=== PATIENT | male | born 1990 | race Caucasian/White ===

== ENCOUNTER 2016-12-28 18:38 | Emergency (ER) | payer OTHER ==
[2016-12-28 18:57] VITALS: TEMP 98.3; BMI 28.0
--- NOTE | 2016-12-28 19:16 | PDOC ---
[id number] NAUSEA/VOMITING Time Seen by Provider: 12/28/16 19:16 History Source: Patient - History of Present Illness Initial Comments: 12/28/16 19:41 26 year old male with RLQ pain , NV since this afternoon. pain worsening overtime. patient reports difficulty with urination and bowel movements. denies flank pain, fever, chest pain Past History - Travel Traveled outside of the country in the last 30 days: Yes Close contact w/someone who was outside of country & ill: No - Past Medical History Allergies/Adverse Reactions: Allergies Allergy/AdvReac Type Severity Reaction Status Date / Time No Known Allergies Allergy Verified 12/28/16 18:57 Home Medications: Ambulatory Orders Ibuprofen 600 mg PO QID #30 tablet 12/29/16 Oxycodone HCl/Acetaminophen [Percocet 5-325 mg Tablet] 1 tab PO Q6H #10 tablet MDD 4 12/29/16 Tamsulosin HCl [Flomax] 0.4 mg PO DAILY #7 capsule 12/29/16 Other medical history: PT DENIES MEDICAL HX - Immunization History Immunization Up to Date: Yes - Psycho/Social/Smoking Cessation Hx Suicidal Ideation: No Smoking History: Never smoked Have you smoked in the past 12 months: Yes Information on smoking cessation initiated: No Hx Alcohol Use: No Drug/Substance Use Hx: Yes Substance Use Type: Marijuana Review of Systems - Review of Systems Able to Perform ROS?: Yes Is the patient limited [place]ian proficient: No Constitutional: No: Symptoms Reported, See HPI, Chills, Diaphoresis, Fever, Loss of Appetite, Malaise, Night Sweats, Weakness, Weight Stable, Unintentional Wgt. Loss, Unexplained wgt Loss, Other HEENTM: No: Symptoms Reported, See HPI, Eye Pain, Blurred Vision, Tearing, Recent change in vision, Double Vision, Cataracts, Ear Pain, Ocular Prothesis, Ear Discharge, Nose Pain, Nose Congestion, Tinnitus, Nose Bleeding, Hearing Loss , Throat Pain, Throat Swelling, Mouth Pain, Dental Problems, Difficulty Swallowing, Mouth Swelling, Other ABD/GI: Yes: Constipated, Nausea, Vomiting, Abdominal cramping : Yes: Other (urinary retention) Integumentary: No: Symptoms Reported, See HPI, Bruising, Change in Color, Change in Hair/Nails, Dryness, Erythema, Flushing, Lesions, Lumps, Pallor, Pruritus, Rash, Sweating, Other Neurological: No: Symptoms reported, See HPI, Headache, Numbness, Paresthesia, Pre-Existing Deficit, Seizure, Tingling, Tremors, Weakness, Unsteady Gait, Ataxia, Dizziness, Other *Physical Exam - Vital Signs Last Vital Signs Temp Pulse Resp BP Pulse Ox 98.3 F 49 L 22 128/44 100 12/28/16 18:54 12/28/16 18:54 12/28/16 18:54 12/28/16 18:54 12/28/16 18:54 - Physical Exam General Appearance: Yes: Appropriately Dressed Respiratory/Chest: positive: Lungs Clear, Normal Breath Sounds, Respiratory Distress Cardiovascular: positive: Regular Rhythm, Regular Rate Gastrointestinal/Abdominal: positive: Normal Bowel Sounds, Tender (RLQ), Soft, Guarding, Rebound, Tenderness (RLQ), Other (+ mcburneys, + rosvigs) Musculoskeletal: positive: Normal Inspection Extremity: positive: Normal Capillary Refill, Normal Inspection Integumentary: positive: Normal Color, Dry, Warm Neurologic: positive: Fully Oriented, Alert, Normal Mood/Affect ED Treatment Course - LABORATORY CBC & Chemistry Diagram: 12/28/16 20:00 12/28/16 20:25 Medical Decision Making - Medical Decision Making A: renal colic/ kidney stone P: IVF A: cbc CMP IV fluids CTAP: + obstructed 4mm stone right UVJ with mild hydronehprosis flomax pain control urology outpatient follow up *DC/Admit/Observation/Transfer Diagnosis at time of Disposition: Kidney stone on right side Abdominal pain Qualifiers: Abdominal location: right lower quadrant Qualified Code(s): R10.31 - Right lower quadrant pain - Discharge Dispostion Disposition: HOME Condition at time of disposition: Stable - Prescriptions Prescriptions: Tamsulosin HCl [Flomax] 0.4 mg PO DAILY #7 capsule Ibuprofen 600 mg PO QID #30 tablet Oxycodone HCl/Acetaminophen [Percocet 5-325 mg Tablet] 1 tab PO Q6H #10 tablet MDD 4 - Referrals Referrals: Selam Hernandez MD [Primary Care Provider] - Magnus Morris MD., MD [Staff Physician] - - Patient Instructions Printed Discharge Instructions: Kidney Stones -- Adult Additional Instructions: drink plenty of fluids take flomax as prescribed. take ibuprofen for pain level 1-5 take percocet for severe pain follow up with urologist as soon as possible.
[2016-12-28] MEDS ORDERED: SODIUM CHLORIDE 1,000 ML IV STA (19:38)
[2016-12-28] MEDS ORDERED: ONDANSETRON 4 MG/2 ML VIAL IVPB ONE (19:38)
[2016-12-28] MEDS ORDERED: morphine CARPU-JECT 4 MG/1 ML DISP.SYRIN IVPUSH ONE (19:39)
[2016-12-28] MEDS ORDERED: morphine CARPU-JECT 4 MG/1 ML DISP.SYRIN ONE (19:45)
[2016-12-28] MEDS ORDERED: ONDANSETRON 4 MG/2 ML VIAL ONE (19:45)
[2016-12-28 20:08] LABS: BASOPHIL 0.4 % (0-2.0); EOSINOPHIL 0.1 % (0-4.5); MCH 30.1 pg (25.7-33.7); MCHC 33.6 g/dl (32.0-35.9); MEAN CELL VOLUME 89.4 fl (80-96); MEAN PLT VOLUME 9.3 fl (7.5-11.1); NEUTROPHILS 87.4 % (42.8-82.8); PLATELET COUNT 266 K/MM3 (134-434); RDW 13.8 % (11.9-15.9); WHITE BLOOD COUNT 13.6 K/mm3 (4.0-10.0)
--- NOTE | 2016-12-28 20:39 | PDOC ---
*Physical Exam - Vital Signs Last Vital Signs Temp Pulse Resp BP Pulse Ox 98.3 F 49 L 22 128/44 100 12/28/16 18:54 12/28/16 18:54 12/28/16 18:54 12/28/16 18:54 12/28/16 18:54 - Physical Exam Comments: 12/28/16 20:39 The patient was examined by [PAULIE Brooke] under my direct supervision. I personally evaluated the patient. I concur with the above findings and the plan of care. ED Treatment Course - LABORATORY CBC & Chemistry Diagram: 12/28/16 20:00 12/28/16 20:00 - ADDITIONAL ORDERS Additional order review: Laboratory Results 12/28/16 20:00 Sodium Cancelled Potassium Cancelled Chloride Cancelled Carbon Dioxide Cancelled Anion Gap Cancelled BUN Cancelled Creatinine Cancelled Creat Clearance w eGFR Cancelled Random Glucose Cancelled Calcium Cancelled Total Bilirubin Cancelled AST Cancelled ALT Cancelled Alkaline Phosphatase Cancelled Total Protein Cancelled Albumin Cancelled Lipase Cancelled 12/28/16 20:00 RBC 4.77 MCV 89.4 MCHC 33.6 RDW 13.8 MPV 9.3 Neutrophils % 87.4 H Lymphocytes % 9.3 Monocytes % 2.8 L Eosinophils % 0.1 Basophils % 0.4 - Medications Given in the ED: ED Medications Discontinued Medications Generic Name Dose Route Start Last Admin Trade Name Freq PRN Reason Stop Dose Admin Sodium Chloride 1,000 mls @ 1,000 mls/hr 12/28/16 19:38 12/28/16 20:01 Normal Saline - IV 12/28/16 20:37 1,000 mls/hr ASDIR STA Administration Morphine Sulfate 4 mg 12/28/16 19:39 12/28/16 20:01 Morphine Injection - IVPUSH 12/28/16 19:40 4 mg ONCE ONE Administration Ondansetron HCl 4 mg 12/28/16 19:38 12/28/16 20:01 Zofran Injection IVPB 12/28/16 19:39 4 mg ONCE ONE Administration *DC/Admit/Observation/Transfer Diagnosis at time of Disposition: Abdominal pain Qualifiers: Abdominal location: right lower quadrant Qualified Code(s): R10.31 - Right lower quadrant pain
[2016-12-28] MEDS ORDERED: HYDROmorphone HCL CARPU-JECT 1 MG/1 ML DISP.SYRIN IVPB ONE (21:00)
[2016-12-28 21:01] LABS: URINE APPEARANCE CLEAR; URINE BILIRUBIN NEGATIVE (NEGATIVE); URINE COLOR STRAW; URINE GLUCOSE (UA) NEGATIVE (NEGATIVE); URINE KETONE 1+ (NEGATIVE); URINE LEUK ESTERASE NEGATIVE (NEGATIVE); URINE NITRITE NEGATIVE (NEGATIVE); URINE UROBILINOGEN NEGATIVE E.U./dl (0.2-1.0)
[2016-12-28 21:07] LABS: URINE BLOOD 1+ (NEGATIVE); URINE PROTEIN 2+ (NEGATIVE)
[2016-12-28] MEDS ORDERED: HYDROmorphone HCL CARPU-JECT 1 MG/1 ML DISP.SYRIN ONE ×2 (21:07→22:29)
[2016-12-28 21:12] LABS: ALBUMIN 4.2 g/dl (3.4-5.0); ANION GAP 10 (8-16); CALCIUM 8.3 mg/dL (8.5-10.1); CO2 27 mmol/L (21-32); COCKROFT - GAULT 138.85; GLUCOSE,RANDOM 109 mg/dL (74-106); SGOT/AST 33 U/L (15-37); SGPT/ALT 39 U/L (12-78)
[2016-12-28 21:13] LABS: URINE MUCUS RARE; URINE RBC 255 /hpf (0-3); URINE WBC 6 /hpf (3-5)
[2016-12-28 21:14] LABS: ALK PHOS 74 U/L (45-117); BILIRUBIN,TOTAL 0.5 mg/dL (0.2-1.0); TOT PROT 7.5 g/dl (6.4-8.2)
[2016-12-28] MEDS ORDERED: SODIUM CHLORIDE 1,000 ML IV SCH (21:30)
[2016-12-28] MEDS ORDERED: KETOROLAC TROMETHAMINE 30 MG/1 ML VIAL IVPUSH ONE (22:25)
[2016-12-28] MEDS ORDERED: HYDROmorphone HCL CARPU-JECT 1 MG/1 ML DISP.SYRIN IVPUSH ONE (22:26)
[2016-12-29] MEDS ORDERED: TAMSULOSIN HCL 0.4 MG CAP.ER.24H (FP) PO ONE
[2016-12-29] MEDS ORDERED: KETOROLAC TROMETHAMINE 30 MG/1 ML VIAL IVPUSH ONE
[2016-12-29] MEDS ORDERED: TAMSULOSIN HCL 0.4 MG CAP.ER.24H (FP) ONE (00:02)
[2016-12-29] MEDS ORDERED: KETOROLAC TROMETHAMINE 30 MG/1 ML VIAL ONE (00:03)
[2016-12-29 00:41] VITALS: BP 127/92; PULSE 73
[2016-12-29] MEDS ORDERED: OXYCODONE/APAP 5/325MG COMBO TABLET PO ONE (01:21)
[2016-12-29] MEDS ORDERED: OXYCODONE/APAP 5/325MG COMBO TABLET ONE (01:27)
--- NOTE | 2016-12-29 09:07 | EKG ---
Test Reason : Blood Pressure : / mmHG Vent. Rate : 067 BPM Atrial Rate : 067 BPM P-R Int : 178 ms QRS Dur : 096 ms QT Int : 418 ms P-R-T Axes : 062 067 051 degrees QTc Int : 441 ms SINUS RHYTHM WITH MARKED SINUS ARRHYTHMIA INCOMPLETE RBBB EARLY REPOLARIZATION NO PREVIOUS ECGS AVAILABLE Confirmed by FELICITA QEUZADA MD ([id number]) on 12/29/2016 9:06:50 AM Referred By: Confirmed By:FELICITA QUEZADA MD
== END 2016-12-29 01:39 | disposition home or self-care (01) ==
LOC: JER 18:38
PROC: 3E0337Z Introduction of Electrolytic and Water Balance Substance into Peripheral Vein, Percutaneous Approach (ICD-10-PCS; principal; 2016-12-28)
PROC: 3E033NZ Introduction of Analgesics, Hypnotics, Sedatives into Peripheral Vein, Percutaneous Approach (ICD-10-PCS; 2016-12-28)
PROC: 3E0333Z Introduction of Anti-inflammatory into Peripheral Vein, Percutaneous Approach (ICD-10-PCS; 2016-12-28)
PROC: 3E033GC Introduction of Other Therapeutic Substance into Peripheral Vein, Percutaneous Approach (ICD-10-PCS; 2016-12-28)
PROC: 3E033NZ Introduction of Analgesics, Hypnotics, Sedatives into Peripheral Vein, Percutaneous Approach (ICD-10-PCS; 2016-12-28)
PROC: 3E033NZ Introduction of Analgesics, Hypnotics, Sedatives into Peripheral Vein, Percutaneous Approach (ICD-10-PCS; 2016-12-28)
DX: N13.2 Hydronephrosis with renal and ureteral calculous obstruction (principal)
CPT/HCPCS: 36415; 74177-TC; 80053; 81003; 81015; 85025; 93005; 93010; 99283-25